=== PATIENT | male | born 1995 | race Caucasian/White ===

== ENCOUNTER 2016-08-10 20:38 | Emergency (ER) | payer OTHER ==
[~2016-08-10] VITALS: Ht 180.3 cm; Wt 120.9 kg
[~2016-08-10 20:38] MED LIST: CETI10TA10 PO; IBUP-1277 PO
[2016-08-10 20:52] VITALS: TEMP 36.9; Ht 180.3 cm; Wt 120.9 kg
[2016-08-10] MEDS ORDERED: IBUP1TAB55 PO (21:42)
--- NOTE | 2016-08-10 21:48 | DIAGNOSTIC IMAGING REPORT ---
CT HEAD WITHOUT CONTRAST (CT) CLINICAL HISTORY: Headache status post head trauma COMPARISON STUDY: No previous studies for comparison. TECHNIQUE: Axial CT of the brain is performed from the vertex to the skull base. IV contrast was not administered for this examination. CT DOSE: 537.48 mGy.cm FINDINGS: No intra or extra-axial mass lesions are visualized. There is no CT evidence of acute cortical infarction. There is no evidence of midline shift. There is no acute hemorrhage. No calvarial fractures are visualized. There is no evidence of pathologic ventricular dilatation. There is no evidence of acute sinusitis IMPRESSION: Normal noncontrast head CT. Electronically signed by: Surya Levi M.D. 08/10/2016 9:47 PM Dictated Date/Time: 08/10/2016 9:46 PM
--- NOTE | 2016-08-10 21:52 | EMERGENCY ROOM VISIT NOTE ---
History First contact with patient: 21:22 Chief Complaint: HEADACHE Stated Complaint: DIZZINESS,NAUSEA,CHRONIC HEADACHE,CONCUSSION History of Present Illness The patient is a 21 year who presents to the Emergency Room with complaints of Head injury. 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 While at work 2 days prior to arrival, he slipped on ice while work and subsequently slammed his head into a metal beam which surrounded the "study chamber" . no other reported injuries. Following head injury, patient reports possible LOC but is uncertain. Since injury , patient has experienced progressive headaches, photophobia and nausea. He went to [facility] for evaluation today and was told he probably has a mild concussion and was sent home but told to go to ED if symptoms worsened. Since then Headaches has have intensified rating intensity as 7-8/10. He also reports fatigue, " not feeling like himself." He took 2 Ibuprofen for pain around 1:00PM. Patient reports previous hx of a concussion in 8th grade. Review of Systems Pt denies fevers, chest pain, shortness of breath,, vomiting, diarrhea, pain with urination, and melena. Past Medical/Surgical History Medical Problems: (1) [place] Teeth Removal Social History Smoking Status: Never Smoker Marital Status: single Current/Historical Medications Scheduled PRN Ibuprofen-Diphenhydramine Citr (Ibuprofen Pm), 2 TABS PO DAILY PRN for Pain Allergies Coded Allergies: No Known Allergies (Unverified , 06/25/12) Physical Exam Vital Signs Date Time Temp Pulse Resp B/P Pulse Ox O2 Delivery O2 Flow Rate FiO2 08/10/16 20:52 36.9 64 18 161/82 99 Room Air Physical Exam GENERAL: alert, mild distress EYE EXAM: normal conjunctiva, PERRL and EOM's grossly intact NECK: supple, no nuchal rigidity, no adenopathy, non-tender LUNGS: Clear to auscultation. Normal chest wall mechanics HEART: no murmurs, S1 normal and S2 normal ABDOMEN: abdomen soft, non-tender, normo-active bowel sounds, no masses, no rebound or guarding. BACK: Back is symmetrical on inspection and there is no deformity, no midline tenderness, no CVA tenderness. SKIN: no rashes and no bruising UPPER EXTREMITIES: upper extremities are grossly normal. LOWER EXTREMITIES: No pitting edema. NEURO EXAM: Normal sensorium, cranial nerves II-XII intact, normal speech, no weakness of arms, no weakness of legs. No drift. Medical Decision & Procedures ER Provider Diagnostic Interpretation: CT HEAD WITHOUT CONTRAST (CT) CLINICAL HISTORY: Headache status post head trauma COMPARISON STUDY: No previous studies for comparison. TECHNIQUE: Axial CT of the brain is performed from the vertex to the skull base. IV contrast was not administered for this examination. CT DOSE: 537.48 mGy.cm FINDINGS: No intra or extra-axial mass lesions are visualized. There is no CT evidence of acute cortical infarction. There is no evidence of midline shift. There is no acute hemorrhage. No calvarial fractures are visualized. There is no evidence of pathologic ventricular dilatation. There is no evidence of acute sinusitis IMPRESSION: Normal noncontrast head CT Medical Decision 21 yo M p/w Hx of head injury 2 days prior to arrival with subsequent progressive headache, nausea, photophobia Differential Diagnosis includes but is not limited to headache, tension headache , cluster headache, migraine, subarachnoid hemorrhage, meningitis, mass, central venous thrombus, concussion, trauma and epidural/subdural hemorrhage. - symptoms likely due to Concussion -CT Head: normal. -Patient Discharged to home, encouraged to take ibuprofen as needed Impression Primary Impression: Head injury Additional Impression: Headache Departure Information Dispostion Home / Self-Care Referrals No Doctor, Assigned (PCP) Patient Instructions My [facility] Resident Tracking Resident Involvement: Resident Care Provided Care Provided: Adult ED Problem Qualifiers Primary Impression: Head injury Encounter type: initial encounter Qualified Codes: S09.90XA - Unspecified injury of head, initial encounter Additional Impression: Headache Headache type: post-traumatic Headache chronicity pattern: acute headache Intractability: intractable Qualified Codes: G44.311 - Acute post-traumatic headache, intractable
[2016-08-10 22:15] VITALS: BP 135/87; PULSE 75; O2SAT 98
--- NOTE | 2016-08-10 22:18 | EMERGENCY ROOM VISIT NOTE ---
History Report prepared by Scribe: Heydi Monsivais Under the Supervision of: Dr. Andrew Muniz D.O. First contact with patient: 21:23 Chief Complaint: HEADACHE Stated Complaint: DIZZINESS,NAUSEA,CHRONIC HEADACHE,CONCUSSION History of Present Illness The patient is a 21 year old male who presents to the Emergency Room with complaints of a persistent headache. 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 While at work 2 days ago, he slipped on ice and subsequently slammed his head into a metal beam which surrounded the "study chamber". He denies sustaining any other injuries. Following the injury, he believes he lost consciousness, but is not completely sure. Since injury, he has experienced progressive headaches, photophobia and nausea. He went to Occupational Health for evaluation today and was told he probably has a mild concussion and was sent home, but told to go to ED if symptoms worsened. His headaches have worsened since then and he rates his current discomfort as an 8/10. He also states he feels fatigued and "not like himself". Ibuprofen taken at 1300 has provided minimal relief. The patient admits to a history of a previous concussion when he was 11 years old. He denies any recent fevers, chest pain, shortness of breath, vomiting, diarrhea, urinary symptoms or melena. 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 A total of 10 systems reviewed and were otherwise negative. Past Medical & Surgical Medical Problems: (1) [place] Teeth Removal Social History Smoking Status: Never Smoker Smokeless Tobacco Use: No Alcohol Use: occasionally Drug Use: none Marital Status: single Housing Status: lives with roommate Occupation Status: [employer] student Current/Historical Medications Scheduled PRN Ibuprofen-Diphenhydramine Citr (Ibuprofen Pm), 2 TABS PO DAILY PRN for Pain Allergies Coded Allergies: No Known Allergies (Unverified , 06/25/12) Physical Exam Vital Signs Date Time Temp Pulse Resp B/P Pulse Ox O2 Delivery O2 Flow Rate FiO2 08/10/16 22:15 75 18 135/87 98 08/10/16 20:52 36.9 64 18 161/82 99 Room Air Physical Exam CONSTITUTIONAL/VITAL SIGNS: Reviewed / noted above. GENERAL: Non-toxic in appearance. INTEGUMENTARY: Warm, dry, and [place]. HEAD: Normocephalic. EYES: without scleral icterus or trauma. ENT/OROPHARYNX: clear and moist. LYMPHADENOPATHY/NECK: Is supple without lymphadenopathy or meningismus. RESPIRATORY: Lungs clear and equal. CARDIOVASCULAR: Regular rate and rhythm. GI/ABDOMEN: Soft and nontender. No organomegaly or pulsatile mass. No rebound or guarding. Normal bowel sounds. EXTREMITIES: Warm and well perfused. BACK: No CVA tenderness. NEUROLOGICAL: Intact without focal deficits. PSYCHIATRIC: normal affect. MUSCULOSKELETAL: Normally developed with good muscle tone. Medical Decision & Procedures ER Provider Diagnostic Interpretation: This CT scan was reviewed and interpreted by the radiologist and reviewed by myself. CT HEAD WITHOUT CONTRAST (CT) IMPRESSION: Normal noncontrast head CT. Electronically signed by: Surya Levi M.D. 08/10/2016 9:47 PM ED Course 2114: Previous medical records were reviewed. The patient was evaluated in room D3. A complete history and physical examination was performed. 2219: I reevaluated the patient. He is feeling better. I discussed his results and discharge instructions and he verbalized complete understanding and agreement. Medical Decision Differential includes close head injury, intracranial bleed, facial trauma, cervical spine trauma, chest and thoracic trauma, abdominal and intra-abdominal trauma, spine neurologic trauma, extremity trauma. This is a 21-year-old male who slipped on some ice a few days ago and fell striking his head. He was at [employer] working on an experiment at the time. The patient has above complaints today. A CT scan of the brain did not show any acute process. His exam was unremarkable. Has a mild closed head injury. Symptomatically care was recommended. The patient was felt to be stable for discharge. Impression Primary Impression: Head injury Additional Impression: Headache Scribe Attestation The scribe's documentation has been prepared under my direction and personally reviewed by me in its entirety. I confirm that the note above accurately reflects all work, treatment, procedures, and medical decision making performed by me. Departure Information Dispostion Home / Self-Care Referrals [facility] (PCP) Patient Instructions My [facility] Additional Instructions Take Tylenol or Motrin for discomfort. Rest. Avoid long computer use. Drink plenty fluids. Anticipate improvement of symptoms over the next week or so. Follow-up with [facility] or your doctor if symptoms persist. Problem Qualifiers Primary Impression: Head injury Encounter type: initial encounter Qualified Codes: S09.90XA - Unspecified injury of head, initial encounter Additional Impression: Headache Headache type: post-traumatic Headache chronicity pattern: acute headache Intractability: intractable Qualified Codes: G44.311 - Acute post-traumatic headache, intractable
== END 2016-08-10 22:25 | disposition home or self-care (01) ==
LOC: C.EDB 20:39 → C.EDD 22:25
DX: S09.90XA Unspecified injury of head, initial encounter (principal); G44.311 Acute post-traumatic headache, intractable; W00.0XXA Fall on same level due to ice and snow, initial encounter; Y92.214 College as the place of occurrence of the external cause